=== PATIENT | female | born 1940 | race Caucasian/White ===

== ENCOUNTER → 2020-05-12 | Outpatient (CLI) | payer MEDICARE, OTHER ==
[~2020-05-12] MED LIST: FLEXERIL 10 MG10 MG PO; NORCO 5-325 TA1 EACH PO
== END ==
LOC: EXRD 07:45
DX: M79.604 Pain in right leg (principal); I99.8 Other disorder of circulatory system; I70.201 Unspecified atherosclerosis of native arteries of extremities, right leg
CPT/HCPCS: 76706; 93925

== ENCOUNTER → 2022-01-20 | Outpatient (CLI) | payer MEDICARE | LOC: RAD 13:25 | DX: M54.9 Dorsalgia, unspecified (principal); M25.50 Pain in unspecified joint | CPT/HCPCS: 72110; 73522 ==